=== PATIENT | female | born 1960 | race Caucasian/White ===

== ENCOUNTER 2019-05-12 13:40 | Outpatient (CLI) | payer BC, OTHER ==
[2019-05-12] MEDS ORDERED: APIX5TAB PO (15:04)
[2019-05-12] MEDS ORDERED: CETI-158 PO-COUM (15:04)
[2019-05-12] MEDS ORDERED: CHOL10003 PO (15:04)
[2019-05-12] MEDS ORDERED: FLUT10.6 INH (15:04)
[2019-05-12] MEDS ORDERED: PARI1CAP3 PO (15:04)
[2019-05-12] MEDS ORDERED: ALBU8.5H8 INH (15:04)
[2019-05-12] MEDS ORDERED: ATEN25TA PO (15:04)
[2019-05-12] MEDS ORDERED: TRIA10.8 NAS (15:04)
== END 2019-05-12 23:59 | disposition home or self-care (01) ==
LOC: STAR 13:40
PROVIDERS: ATTEND Obstetrics & Gynecology Female Pelvic Medicine and Reconstructive Surgery
DX: Z02.9 Encounter for administrative examinations, unspecified (principal)

== ENCOUNTER 2019-05-19 08:23 | Day surgery (SDC) | payer BC, OTHER ==
[~2019-05-19] VITALS: Ht 182.9 cm; Wt 96.6 kg
[~2019-05-19 08:23] MED LIST: ALBU8.5H8 INH; APIX5TAB PO; ATEN25TA PO; CETI-158 PO-COUM; CHOL10003 PO; FLUT10.6 INH; PARI1CAP3 PO; TRIA10.8 NAS
[2019-05-19] MEDS ORDERED: LACTATED RINGERS 1,000 ML IV SCH ×2 (08:47→13:12)
[2019-05-19] MEDS ORDERED: EPHEDRINE 50 MG/ML, 1ML IVPush PRN (09:00)
[2019-05-19] MEDS ORDERED: hydrALAzine 20 MG/ML, 1ML IV PRN (09:00)
[2019-05-19] MEDS ORDERED: HYDROmorphone 2 MG/ML, 1ML IVPush PRN (09:00)
[2019-05-19] MEDS ORDERED: LABETALOL 5MG/ML, 20ML IV PRN (09:00)
[2019-05-19] MEDS ORDERED: ACETAMINOPHEN 500 MG TABLET PO ONE (09:00)
[2019-05-19] MEDS ORDERED: PROMETHAZINE 25 MG/ML, 1ML IV PRN (09:00)
[2019-05-19] MEDS ORDERED: FENTANYL PF 100 MCG/2ML IV PRN (09:00)
[2019-05-19] MEDS ORDERED: ONDANSETRON 2MG/ML, 2ML IV PRN (09:00)
[2019-05-19] MEDS ORDERED: MEPERIDINE/PF 25MG/ML,1ML IVPush PRN (09:00)
[2019-05-19] MEDS ORDERED: GABAPENTIN 300 MG CAPSULE PO ONE (09:00)
[2019-05-19] MEDS ORDERED: OXYcodone 5 MG/5 ML ORAL.SOL UDC PO PRN (09:00)
[2019-05-19 09:02] VITALS: BP 125/67
[2019-05-19] MEDS ORDERED: FENTANYL PF 250 MCG/5ML ONE (09:18)
[2019-05-19] MEDS ORDERED: MIDAZOLAM 1 MG/ML, 2ML ONE (09:18)
[2019-05-19] MEDS ORDERED: ROCURONIUM 10MG/ML,5ML ONE (09:19)
[2019-05-19] MEDS ORDERED: CEFAZOLIN 1,000 MG ONE (09:19)
[2019-05-19] MEDS ORDERED: SUCCINYLCHOLINE 20 MG/ML, 10ML ONE (09:19)
[2019-05-19] MEDS ORDERED: NEOSTIGMINE 1 MG/ML, 10ML ONE (09:19)
[2019-05-19] MEDS ORDERED: ONDANSETRON 2MG/ML, 2ML ONE (09:19)
[2019-05-19] MEDS ORDERED: DEXAMETHASONE 4 MG/ML, 1ML ONE (09:19)
[2019-05-19] MEDS ORDERED: GLYCOPYRROLATE 0.2MG/1ML, 5ML ONE (09:19)
[2019-05-19] MEDS ORDERED: PROPOFOL 10 MG/ML, 20ML ONE (09:19)
[2019-05-19] MEDS ORDERED: BUPIVACAINE/PF 0.25% ONE (10:45)
[2019-05-19] MEDS ORDERED: METHYLENE BLUE 10 MG/ML 10ML ONE (10:46)
[2019-05-19] MEDS ORDERED: EPINEPHRINE 1 MG/ML, 1ML ONE (10:46)
[2019-05-19] MEDS ORDERED: INDIGO CARMINE 0.8%, 5ML ONE (10:51)
[2019-05-19] MEDS ORDERED: CEFOTETAN PMX 2GM/50ML 50 ML ONE (10:54)
[2019-05-19 11:40] LABS: HCG UR SG 1.008 (1.003-1.030)
[2019-05-19] MEDS ORDERED: KETOROLAC 30 MG/1 ML ONE (11:51)
[2019-05-19] MEDS ORDERED: IBUPROFEN 600 MG TABLET PO PRN (13:30)
[2019-05-19] MEDS ORDERED: PROMETHAZINE 12.5 MG SUPP PR ONE (13:30)
[2019-05-19] MEDS ORDERED: HYDROcodone/APAP 5/325 TABLET PO PRN (13:30)
[2019-05-19] MEDS ORDERED: ONDANSETRON 2MG/ML, 2ML IVPush PRN (13:30)
== END 2019-05-19 15:55 | disposition home or self-care (01) ==
LOC: OUT 08:23
PROVIDERS: ATTEND Obstetrics & Gynecology Female Pelvic Medicine and Reconstructive Surgery
DX: N93.8 Other specified abnormal uterine and vaginal bleeding (principal); R10.2 Pelvic and perineal pain; D25.9 Leiomyoma of uterus, unspecified; N80.0 Endometriosis of uterus; N83.12 Corpus luteum cyst of left ovary; J45.909 Unspecified asthma, uncomplicated; I48.91 Unspecified atrial fibrillation; F32.9 Major depressive disorder, single episode, unspecified; F41.9 Anxiety disorder, unspecified; G43.909 Migraine, unspecified, not intractable, without status migrainosus; M19.90 Unspecified osteoarthritis, unspecified site; E05.90 Thyrotoxicosis, unspecified without thyrotoxic crisis or storm; Z79.01 Long term (current) use of anticoagulants; Z79.899 Other long term (current) drug therapy; Z88.0 Allergy status to penicillin; Z85.828 Personal history of other malignant neoplasm of skin
CPT/HCPCS: 58552; 81025; 88307; J0171; J0330; J1100; J1885; J2250; J2405; J2704; J2710; J3010; J3490; J7120; S2900; J0690; Q9968